=== PATIENT | male | born 1985 ===

== ENCOUNTER 2019-10-21 12:33 | Outpatient (CLI) | payer OTHER ==
[2019-10-21 16:22] VITALS: BP 121/74
--- NOTE | 2019-10-21 16:22 | SLEEP CARE CONSULTATION ---
Information from patient questionnaire entered by Bethanie Roberson. I have reviewed and concur with the information entered by Bethanie Roberson. This document represents the service I personally performed and the decisions made by me, Idalia Beckford ARNP. History of Present Illness Service Date and Time: 10/21/2019 1233 Reason for Visit: New patient Chief Complaint: reports: Unrefreshed sleep, Snoring, Excessive daytime sleepiness, Fatigue, Frequent awakenings at night (occasionally; but does have 1 month old at home). denies: Insomnia, Observed pauses in breathing Duration of Symptoms: 5 years plus; last year worse Usual bedtime: 10-11 pm Time it takes to fall asleep: 10-15 minutes Snores at night: Yes Observed to quit breathing while asleep: No Sleeps alone due to snoring: No (not yet) Number of times waking at night: 2-3 Reasons for waking at night: reports: Choking, Snoring, Gasping for air, Bathroom. denies: Pain Toss, Turn, or Twitch while sleeping: Yes Recalls having dreams: No Usually gets out of bed at: 6-7 am Feels refreshed in the morning: No Morning headache: Yes (sometimes; may stay all day sometimes) Sleepy or fatigued during the day: Yes Ever fallen asleep while driving: Yes (woken back up from [place]ble [place]) Takes day naps: No Dreams during day naps: No Prior sleep studies: No Additional HPI information: Patient has many years of unrefreshed sleep, loud snoring and daytime sleepiness. He states he usually puts off taking care of health issues but his insisted he talk to his doctor. He has some GI issues with blood in his stool that has been ongoing for 10 years but increasing in incidences over the last year. He ended up talking to his doctor about his GI symptoms and snoring/unrefreshed sleep who referred him to a GI specialist and the sleep center for further evaluation of his ongoing symptoms. He states he has a hard time staying awake during meetings at work and has dozed off while driving. He luckily was woken up by the noise of tires hitting the strips on the side of the road, no reported accidents. He is and has five kids, including a 1 month old son. He does have frequent awakening for many different reasons, i ncluding choking/gasping/snoring as well as restless legs movements. - Parasomnia Symptoms Ever been unable to move upon waking from sleep: No Walks in sleep: No Talks in sleep: Yes (all the time) Ever acted out dreams in sleep: Yes Ever felt weak in the knees when startled or emotional: No Bothered by creepy, crawly, restless sensations in legs: Yes Problems with memory or concentration: Yes (staying focused is difficult; especially at work on computer) Subjective Initial [place] Sleepiness Scale score: 9 (in 2019) Past Medical History Past Medical History: reports: Other (GI (unknown)- had blood in his stool for 10 years every 6 months/last for a month; referral to GI specialist). denies: Hypertension, Congestive Heart Failure, Diabetes, Stroke, Coronary Heart Disease, Arrythmia, Hypothyroidism, Anemia, Anxiety, Impotence, Depression, Mood disorder, GERD Social History The patient's occupation is a Active . Patient is and lives in [place]. Have you smoked in the past 12 months: No Cigarettes per day (20/pack): 30 Years of smokin Quit date: 2010 Smoking Pack Years: 12.0 Alcohol use: No Caffeine use: Yes Caffeine amount and frequency: 1-2 a day Family History Family history of sleep disordered breathing: Yes (father) Family Hx Sleep Apnea: Mother: Snoring (mother very loud snorer), Father: Snoring, Sleep apnea - Treated Allergies and Home Medications Drug allergies reviewed: Yes (NKDA) Home medication list reviewed: Yes (promethazine as needed and a probiotic) Review of Systems Weight loss over past 5 years: 15 Cardiovascular: denies: high blood pressure, palpitations, chest pain, irregular heart rate or pulse, leg or foot swelling, have to sleep sitting up Respiratory: denies: shortness of breath, chronic cough Gastrointestinal: reports: nausea, diarrhea, abdominal pain, other (blood in stool). denies: heartburn, difficulty swallowing Urinary: denies: impotence Neurological: reports: headaches. denies: seizure, head trauma, disorientation, speech dysfunction, gait or balance problems Psychiatric: denies: anxiety, depression, mood disorder, claustrophobia Ear/Nose/Throat: reports: wisdom teeth removed. denies: nasal congestion, sinus problems, nose bleeds, dry mouth/throat, hoarseness, injury to nose, tonsillectomy Endocrine: reports: sluggishness. denies: thyroid disease, too hot or cold, excessive thirst, increased appetite Musculoskeletal: denies: joint pain, back pain, joint swelling, muscle pain or cramping Immunologic: reports: allergies to food or environment (seasonal, takes OTC off brand zyrtec) Physical Exam Blood Pressure: 121/74 Cuff size: long Heart Rate: 66 O2 Saturation: 99 Height: 6 ft Weight: 230 lb 9.6 oz Body Mass Index: 31.2 BMI Classification: Obese Neck circumference: 17 (inches) HEENT: No craniofacial malformation Nostrils: patent to airflow Turbinates: normal Septum: midline Mouth and throat: normal Soft palate: normal Hard palate: normal Uvula: normal Uvula visualization: 100% Mallampati Class I Tongue: enlarged in size with teeth rendon on lateral edges Tonsils: 1+ Chin and jaw: normal size and position Neck: normal w/o lymphadenopathy or thyromegaly Heart: regular rate and rhythm Lungs: clear bilaterally Impression and Plan 1. Suspected Obstructive Sleep Apnea-Hypopnea Syndrome, as suggested by a history of loud and irregular snoring, gasping or choking in sleep, morning headache, frequent awakening during the night, unrefreshed sleep, cognitive impairment, and excessive daytime sleepiness. Narrow oropharynx and obesity are common predisposing factors for obstructive sleep apnea-hypopnea syndrome. Patient has a referral to GI specialist to discuss/evaluate his ongoing problem with blood in his stool. I recommend proceeding to polysomnography to confirm the diagnosis and to assess severity. I informed the patient of what the sleep studies involve and after some discussion, obtained agreement to proceed. The pathophysiology of obstructive sleep apnea-hypopnea syndrome was discussed with the patient and health risks of cardiovascular and cerebrovascular disease if not treated. AAS brochure for obstructive sleep apnea-hypopnea syndrome given and reviewed. 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 Patient agreed to plan. AAS drowsy driving brochure given. * Schedule polysomnography and return in 1-2 weeks after the study to discuss result and initiate therapy. * Avoid long distance driving or driving when feeling sleepy. * Attempt to lose weight. * Review instructions provided by trained office staff on how to prepare for the sleep study. * Return for follow-up after sleep study completed. Time Spent with Patient (minutes): 25
== END 2019-10-21 12:34 | disposition home or self-care (01) ==
LOC: SC 12:33
PROVIDERS: ATTEND Nurse Practitioner Family
DX: R06.83 Snoring (principal); R51 Headache; G47.8 Other sleep disorders; R41.89 Other symptoms and signs involving cognitive functions and awareness; G47.10 Hypersomnia, unspecified; E66.9 Obesity, unspecified; Z68.31 Body mass index [BMI] 31.0-31.9, adult; F17.210 Nicotine dependence, cigarettes, uncomplicated
CPT/HCPCS: 99204; 99212

== ENCOUNTER 2019-11-27 19:33 | Outpatient (CLI) | payer OTHER | END 2019-11-27 19:34 | disposition home or self-care (01) | LOC: SC 19:33 | PROVIDERS: ATTEND Internal Medicine Pulmonary Disease | DX: R06.83 Snoring (principal); G47.10 Hypersomnia, unspecified; G47.8 Other sleep disorders; G47.50 Parasomnia, unspecified; E66.3 Overweight; Z68.31 Body mass index [BMI] 31.0-31.9, adult | CPT/HCPCS: 95810 ==

== ENCOUNTER 2019-12-04 14:28 | Outpatient (CLI) | payer OTHER ==
--- NOTE | 2019-12-04 14:57 | SLEEP CARE CONSULTATION ---
Information from patient questionnaire entered by Grayson Barrera. I have reviewed and concur with the information entered by Grayson Barrera. This document represents the service I personally performed and the decisions made by , Idalia Beckford ARNP. History of Present Illness Service Date and Time: 12/04/20191427 Initial [place] Sleepiness Scale score: 9 (in 2019) Additional HPI information: DERRICK CHACON returns with spouse for follow up and results of the recently performed polysomnography. The patient was informed of the following findings: Normal sleep study without evidence of significant sleep disordered breathing. I explained the pathophysiology behind obstructive sleep apnea. Patient does not have sleep apnea and was advised how weight gain could increase the risk of developing sleep apnea in the future. I strongly encouraged the patient to lose weight. Patient has moderate to loud snoring. Snoring can be reduced by weight loss. Weight loss is best achieved with diet consult. Patient instructed to contact PCP for referral. Snoring can also be treated with an oral appliance from a dentist. Advised to check insurance coverage. In addition, an ENT evaluation can be do to see if other treatment is indicated. Patient counseled not drink alcohol less than 4 hours before bedtime as it can increase snoring and apnea. Patient was cautioned about risks of drowsy driving until sleepiness symptoms resolve. Sleep Study - Results Type of Sleep Study: Polysomnography Prior sleep studies: No Polysomnography/Home Sleep Study results: IMPRESSION: The quality of the study is good. The patient had normal sleep efficiency. The sleep architecture was normal as well. Respiratory monitoring showed no significant sleep disordered breathing (AHI = 0.9) or hypoxia (roverto oxygen saturation of 91%). The patient only slept supine during this study (supine AHI = 0.9; nonsupine = 0.00). Snore was moderate to loud in intensity. There was no significant periodic leg movement of sleep. Cardiac rhythm was normal sinus rhythm without significant arrhythmia. No abnormal behavior (parasomnia) observed during the night. Allergies and Home Medications Drug allergies reviewed: Yes (NKDA) Home medication list reviewed: Yes (added budesonide, mesalamine, promethazine) Review of Systems Review of systems same as previous: No (recently diagnosed with ulcerative colitis) Physical Exam Heart Rate: 75 O2 Saturation: 98 Height: 6 ft Weight: 213 lb Body Mass Index: 28.8 BMI Classification: Overweight Impression and Plan Snoring but no significant sleep disordered breathing. Patient advised that often weight loss will reduce snoring as well as apnea risk. An oral appliance can also be used for snoring. This would require a dental consultation. Patient cautioned not to use other online appliances as can cause bite issues. Patient is advised to check if insurance will cover. An ENT consult can also be helpful to determine if any other treatment is an option. Patient recently diagnosed with ulcerative colitis with long history of blood in his stool. He is not on medication and has not had any bleeding in the last 2 weeks. He states he had restless legs last night. This is common for him but not every night. He states he slept really well for the sleep study but still did not feel rested the next day. I advised him to follow up with his PCP for evaluation of iron store depletion or anemia as possible cause of his fatigue and intermittent restless leg symptoms. Low iron stores are commonly found in people with symptoms of restless legs and with his history of bleeding he may have a low store of ferritin. * Follow up with PCP for fatigue and restless legs symptoms * Attempt to lose weight * Avoid alcohol consumption near bedtime * The patient is cautioned about driving until sleepiness is completely resolved. * Return as needed with worsening of symptoms or change in symptoms. Visit Type: In Office Time Spent with Patient (minutes): 15 Provider Statement: I spent 100% of the Face to Face Visit with the patient with greater than 50% spent counseling the patient and coordination of care.
== END 2019-12-04 14:29 | disposition home or self-care (01) ==
LOC: SC 14:28
PROVIDERS: ATTEND Nurse Practitioner Family
DX: R06.83 Snoring (principal); E66.3 Overweight; Z68.28 Body mass index [BMI] 28.0-28.9, adult
CPT/HCPCS: 99212; 99213

== ENCOUNTER 2020-02-19 01:42 | Outpatient (CLI) | payer OTHER | END 2020-02-19 01:43 | disposition short-term general hospital (02) | LOC: EMS 01:42 | PROVIDERS: ATTEND Surgery | DX: R10.30 Lower abdominal pain, unspecified (principal); M25.552 Pain in left hip; M25.551 Pain in right hip | CPT/HCPCS: A0425; A0427 ==

== ENCOUNTER 2020-12-15 09:18 | Outpatient (CLI) | payer OTHER ==
--- NOTE | 2020-12-15 09:58 | SLEEP CARE CONSULTATION ---
Information from patient questionnaire entered by Bethanie Roberson. I have reviewed and concur with the information entered by Bethanie Roberson. This document represents the service I personally performed and the decisions made by , Idalia Beckford ARNP. History of Present Illness Service Date and Time: 12/15/2020 0918 Reason for follow up: annual (last seen 12/2019) Prior sleep studies: Yes Year and Where: 2019 - [facility] Type of Sleep Study: Polysomnography (negative) HPI additional information: DERRICK CHACON returns today for a follow-up. He was talking with PCP about his restless legs. He is having symptoms of restless legs 5-6 days a week. He is also tired all the time despite getting adequate time in bed/sleep. He was started on some muscle relaxers which do help reduce the RLS symptoms. He states the restless legs to not wake him up but it does make it hard for him to relax enough to go to sleep. He still has some nights that he will wake up for unknown reasons and a hard time falling back asleep. Subjective Initial [place] Sleepiness Scale score: 9 (in 2019) Allergies and Home Medications Home medication list reviewed: Yes Allergy and home medication list: Humira Methotrexate Fontanelle Robaxin Zyrtec Review of Systems Review of systems same as previous: No (Ulcerative colitis) Physical Exam Heart Rate: 73 O2 Saturation: 98 Height: 6 ft Weight: 242 lb (w/boots) Body Mass Index: 32.8 BMI Classification: Obese Impression and Plan 1. Suspected Obstructive Sleep Apnea-Hypopnea Syndrome, as suggested by a history of irregular snoring, observed cessation of breath while asleep, gasping or choking in sleep, frequent awakening during the night, unrefreshed sleep, and excessive daytime sleepiness. Patient had a previous sleep study but did not sleep non-supine during the study. Patient continues to have symptoms and has been diagnosed with restless leg syndrome. He experiences restless sensations in his legs 5 to 6 days of the week and is on Robaxin which does help reduce the restlessness. I think it would be advantageous to repeat a home study and have him sleep both supine and non-supine to get abril accurate measurement. I recommend proceeding to polysomnography to confirm the diagnosis and to assess severity. The pathophysiology of obstructive sleep apnea-hypopnea syndrome was discussed with the patient and health risks of cardiovascular and cerebrovascular disease if not treated. 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 Patient agreed to plan. * Schedule HST * Avoid long distance driving or driving when feeling sleepy. * Avoid alcohol, sedative and muscle relaxant around bedtime. * Attempt to lose weight. * Review instructions provided by trained office staff on how to prepare for the sleep study. * Return for follow-up after sleep study completed. Counseling Topics: Weight loss health impact Visit Type: In Office Time Spent with Patient (minutes): 22 Provider Statement: I spent 100% of the Face to Face Visit with the patient with greater than 50% spent counseling the patient and coordination of care.
== END 2020-12-15 09:19 | disposition home or self-care (01) ==
LOC: SC 09:18
PROVIDERS: ATTEND Nurse Practitioner Family
DX: R06.83 Snoring (principal); G47.10 Hypersomnia, unspecified; G47.8 Other sleep disorders; G25.81 Restless legs syndrome; E66.9 Obesity, unspecified; Z68.32 Body mass index [BMI] 32.0-32.9, adult
CPT/HCPCS: 99212; 99213

== ENCOUNTER 2021-01-19 08:20 | Outpatient (CLI) | payer OTHER | END 2021-01-19 08:21 | disposition home or self-care (01) | LOC: SC 08:20 | PROVIDERS: ATTEND Nurse Practitioner Family | DX: Z53.9 Procedure and treatment not carried out, unspecified reason (principal) ==

== ENCOUNTER 2021-04-06 19:33 | Outpatient (CLI) | payer OTHER | END 2021-04-06 19:34 | disposition home or self-care (01) | LOC: SC 19:33 | PROVIDERS: ATTEND Nurse Practitioner Family | DX: G47.33 Obstructive sleep apnea (adult) (pediatric) (principal) | CPT/HCPCS: 95810 ==

== ENCOUNTER 2021-04-14 09:26 | Outpatient (CLI) | payer OTHER ==
[2021-04-14 10:02] VITALS: BP 133/91
--- NOTE | 2021-04-14 10:02 | SLEEP CARE CONSULTATION ---
Information from patient questionnaire entered by Michelle Rouse MA. I have reviewed and concur with the information entered by Michelle Rouse MA. This document represents the service I personally performed and the decisions made by , Idalia Beckford ARNP. History of Present Illness Service Date and Time: 04/14/2021 0926 Initial [place] Sleepiness Scale score: 9 (in 2019) Current [place] Sleepiness Scale score: 3 (2021) Additional HPI information: DERRICK CHACON returns for follow up and results of the recently performed polysomnography. I explained the pathophysiology behind obstructive sleep apnea. We then spent quite a bit of time discussing different treatment options. For mild obstructive sleep apnea, surgery and oral appliance are alternatives to nasal CPAP therapy but in moderate or severe cases, nasal CPAP is the most effective and reliable treatment. Because apnea is primarily in supine position, then positional management therapy could be effective. Methods discussed such as positioning with pillows to prevent supine sleep. I reviewed the impact of weight changes on sleep apnea and strongly recommended losing weight. After some discussion, the patient opted to go with the nasal CPAP therapy. Nasal autoCPAP set at 4-15 cmH20 will be ordered with rationale explained. A manual titration study will be ordered if unable to find optimal pressure with office adjustments. I explained how CPAP machine works and what to expect when using the machine. Using CPAP every night in order to get used to it was emphasized. Patient advised to put CPAP mask on before getting into bed so as not to fall asleep without CPAP. To assist acclimation to CPAP use, it could also be used for a short time during day while reading or watching TV. The patient was instructed to call the CPAP supplier to discuss any mechanical problem that may occur. If the mask given is uncomfortable or is difficult to keep on through the night even with adjustment, contact the CPAP supplier as many will replace with another mask style if notified before 30 days. If snoring or perceives is not getting enough air or too much air from the machine, notify this office. AASM patient education PAP tips reviewed and given to ciera cope. Patient was cautioned about risks of drowsy driving until sleepiness symptoms resolve. Sleep Study - Results Type of Sleep Study: Polysomnography (negative) Prior sleep studies: Yes Year and Where: 2019 - [facility] Sleep Polysomnography/Home Sleep Study results: IMPRESSION: The quality of the study is fair due to loss of pressure transducer air flow signal. The patient had normal sleep efficiency. The sleep architecture was normal as well. Respiratory monitoring showed mild obstructive sleep apnea-hypopnea (AHI = 8.4) associated with oxyhemoglobin desaturation and mild hypoxia (roverto oxygen saturation of 82%). The respiratory events occurred mainly during supine sleep (supine AHI = 10.3; nonsupine = 5.21). Snore was light to moderate in intensity. There was no significant periodic leg movement of sleep. Cardiac rhythm was normal sinus rhythm without significant arrhythmia. No abnormal behavior (parasomnia) observed during the night. Allergies and Home Medications Known drug allergies: No Drug allergies reviewed: Yes Home medication list reviewed: Yes (no changes) Review of Systems Review of systems same as previous: Yes (no changes) Physical Exam Vital signs obtained and entered by: ELLA ANDREWS Blood Pressure: 133/91 (RIGHT, PULSE 77) Heart Rate: 82 O2 Saturation: 98 (WITH PAPER MASK) Height: 6 ft Weight: 235 lb (WITH CLOTHES AND BOOTS) Body Mass Index: 31.8 BMI Classification: Obese Impression and Plan 1. Obstructive Sleep Apnea-Hypopnea Syndrome, mild, with lowest oxygen saturation of 82%. Obviously this is the cause of the patients symptoms of unrefreshed sleep, and excessive daytime sleepiness. Positive pressure therapy could benefit his overall health and reduce cardiovascular and cerebrovascular adverse events. As mentioned above, the patient will be started on nasal autoCPAP therapy with pressure set at 4-15 cmH2O. A manual titration study will be completed if unable to find optimal treatment pressure with office adjustments. Compliance guidelines also reviewed. A copy of compliance guidelines will be given for reference at check out. Because the apnea is more severe supine, I instructed to avoid sleeping supine using pillow positioning until able to start CPAP use. Patient has concerns about parasomnia behaviors he experiences at night where he will sit up in bed, stand at bedside and even start making his bed while still asleep. He states he can go months without doing this but then have a month where he does and he does not sleep well those nights. I will look into this and discuss with medical technologist generalist about this. We did not see any of this behavior the night of the PSG. * Nasal auto CPAP therapy, pressure at 4-15 cm H2O. * Attempt to lose weight. * Avoid alcohol consumption near bedtime. * Avoid supine sleep until using CPAP. * The patient is again cautioned about driving until sleepiness completely resolves. * Return one month after CPAP obtained. I will assess response to therapy and compliance at that time. Counseling Topics: Weight loss health impact Visit Type: In Office Time Spent with Patient (minutes): 20 Provider Statement: I spent 100% of the Face to Face Visit with the patient with greater than 50% spent counseling the patient and coordination of care.
== END 2021-04-14 09:27 | disposition home or self-care (01) ==
LOC: SC 09:26
PROVIDERS: ATTEND Nurse Practitioner Family
DX: G47.33 Obstructive sleep apnea (adult) (pediatric) (principal); E66.9 Obesity, unspecified; Z68.31 Body mass index [BMI] 31.0-31.9, adult
CPT/HCPCS: 99212; 99213

== ENCOUNTER 2021-08-02 13:07 | Outpatient (CLI) | payer OTHER ==
[2021-08-02 14:39] VITALS: BP 128/76
--- NOTE | 2021-08-02 14:39 | SLEEP CARE CONSULTATION ---
Information from patient questionnaire entered by Michelle Apodaca MA. I have reviewed and concur with the information entered by Michelle Apodaca MA. This document represents the service I personally performed and the decisions made by , Idalia Beckford ARNP. History of Present Illness Service Date and Time: 08/02/2021 1307 Previous diagnosis: Mild, Obstructive Sleep Apnea-Hypopnea Syndrome AHI: 8.4 (in 2021) Reason for follow up: first compliance (SET UP DATE 06/08/21, MELANIE MCCURDY WILL FAX OVER THE COMPLIANCE TODAY, ) Equipment type: CPAP Equipment obtained from: Other ([employer]; got initial supplies) Mask style: Full face Backup mask available: No (will keep old mask when replaced) Last cushion change: 1 month [facility] sleep [facility]: Yes [facility] Type of Sleep Study: Polysomnography (negative) HPI additional information: DERRICK CHACON was diagnosed to have mild, AHI 8.4, obstructive sleep apnea- hypopnea syndrome and returned today for CPAP therapy first compliance follow- up. Sleep Study - Results Type of Sleep Study: Polysomnography (negative) Prior sleep studies: Yes [facility] CP[facility] Compliance Data - Data Reviewed with Patient Average duration of nightly device use: 2 hours Compliance rate %: 6 ( days used; >/= to 4 hours) Current pressure setting (cmH2O): 4-15 Humidity settin Average residual AHI: 0.6 Average large leak: 3.6 L/min Compliance data discussion: He states he was doing well with the mask until he got sick with a virus about 3 weeks ago. He was wearing the mask between 5-6 hours most nights. Subjective Missed days of use due to: reports: family emergency, illness Patient concerns: reports: condensation in mask/hose (resolved now), dry mouth, nose, throat (resolved with using full face mask). denies: aerophagia, mask discomfort, air blowing in eyes, mask leak noise, nasal congestion, epistaxis, other Observed to snore while using device: No On therapy, patient: reports: sleeping better, awakening more refreshed, being more awake and alert during the day, more rested overall, other (reduced headaches). denies: drowsiness while driving Initial [place] Sleepiness Scale score: 9 (in 2019) Current [place] Sleepiness Scale score: 2 (07/2021) Allergies and Home Medications Known drug allergies: No Drug allergies reviewed: Yes Home medication list reviewed: Yes (prednisone for ulcerative colitis, last 4 months) Review of Systems Review of systems same as previous: Yes Physical Exam Vital signs obtained and entered by: ELLA APODACA Blood Pressure: 128/76 (right, resp 16, pulse 93) Heart Rate: 68 O2 Saturation: 96 Height: 6 ft Weight: 230 lb (with clothes) Body Mass Index: 31.1 BMI Classification: Obese Impression and Plan 1. Obstructive Sleep Apnea-Hypopnea Syndrome, mild, with poor treatment compliance and excellent apnea control. On CPAP therapy, the patient has better sleep quality and is more rested overall. I was unable to get a full compliance therapy report from his DME to see what pressures he is using on average. He is doing well on current setting of 4-15 cmH2O and no changes will be made until I see the full report. His compliance is down. About 3 weeks ago he got very ill, he thinks it was a virus and due to coughing could not tolerate wearing the mask until he got better. He has started using it 5-6 hours a night over the last 4-5 days. He has noticed that he has been having less headaches when he uses the CPAP. Patient's apnea severity and rationale for treatment to reduce apnea, improve sleep quality and reduce cardiovascular and cerebrovascular events was reviewed. Patient was advised to try to lose weight to maintain a healthy weight and reduce apneas. 2. Parasomnia. Patient was advised patient that I spoke with Dr. Zaldivar about the parasomnias he described at our last visit and that Dr. Zaldivar advised that since these episodes of parasomnias were not often that a daily medication was not an ideal solution. He said as long as there were no risky behaviors such as walking out of the house, cooking or aggressive behavior that no treatment was really needed. Dr. Zaldivar also stated that taking a 4 mg tablet of melatonin nightly has been shown to reduce episodes of parasomnias. He could take melatonin 4 mg daily to try to reduce parasomnias as a preventative. He voiced understanding. * Continue auto CPAP pressure at 4-15 cmH2O * Patient may take OTC melatonin 4 mg nightly to reduce parasomnias * Notify me if snoring with mask or feeling that the pressure is too much or too little * Attempt to lose weight * Call this office if any problems using CPAP * Return for follow up in 1-2 months, or sooner if concerns arise Counseling Topics: Spare mask, Weight loss health impact Visit Type: In Office Time Spent with Patient (minutes): 22 Provider Statement: I spent 100% of the Face to Face Visit with the patient with greater than 50% spent counseling the patient and coordination of care.
== END 2021-08-02 13:08 | disposition home or self-care (01) ==
LOC: SC 13:07
PROVIDERS: ATTEND Nurse Practitioner Family
DX: G47.33 Obstructive sleep apnea (adult) (pediatric) (principal); G47.50 Parasomnia, unspecified; E66.9 Obesity, unspecified; Z68.31 Body mass index [BMI] 31.0-31.9, adult
CPT/HCPCS: 99212; 99213

== ENCOUNTER 2021-09-14 10:21 | Outpatient (CLI) | payer OTHER ==
[2021-09-14 11:09] VITALS: BP 136/96
--- NOTE | 2021-09-14 11:09 | SLEEP CARE CONSULTATION ---
Information from patient questionnaire entered by Michelle Rouse MA. I have reviewed and concur with the information entered by Michelle Rouse MA. This document represents the service I personally performed and the decisions made by , Idalia Beckford ARNP. History of Present Illness Service Date and Time: 09/14/2021 1021 Previous diagnosis: Mild, Obstructive Sleep Apnea-Hypopnea Syndrome AHI: 8.4 (in 2021) Reason for follow up: other (6 WEEK F/U, IBREEZE, WE CALLED OX FOR COMPLIANCE 09/13/21, ) Accompanied by: Spouse Equipment type: CPAP (IBreeze) Equipment obtained from: Other ([employer]; getting supplies as needed) Mask style: Full face Backup mask available: Yes (other masks) [facility]: Yes [facility] Type of Sleep Study: Polysomnography (negative) HPI additional information: DERRICK CHACON was diagnosed to have mild, AHI 8.4, obstructive sleep apnea- hypopnea syndrome and returned with spouse and kids today for CPAP therapy 6 week follow-up. Sleep Study - Results Type of Sleep Study: Polysomnography (negative) Prior sleep studies: Yes [facility] CPAP Compliance Data - Data Reviewed with Patient Average duration of nightly device use: 1.5 hrs Compliance rate %: 0 (24/30 days used; 30 day compliance) Current pressure setting (cmH2O): 4-15 (P95 avg 5.3) Average residual AHI: 1.2 Average large leak: 15.6 L/min Subjective Patient concerns: reports: other (sleep walking increased over last month). denies: aerophagia, mask discomfort, air blowing in eyes, mask leak noise, condensation in mask/hose, nasal congestion, dry mouth, nose, throat, epistaxis Observed to snore while using device: Yes Current pressure setting perceived as: too low (TAKE IT OFF DURING SLEEP, SNORING WHILE USE,) On therapy, patient: reports: sleeping better, awakening more refreshed, being more awake and alert during the day, more rested overall. denies: drowsiness while driving Initial [place] Sleepiness Scale score: 9 (in 2019) Current [place] Sleepiness Scale score: 7 (09/14/2021) Allergies and Home Medications Home medication list reviewed: Yes (Stelara for ulcerative colitis) Review of Systems Review of systems same as previous: Yes (no changes) Physical Exam Vital signs obtained and entered by: ELLA ANDREWS Blood Pressure: 136/96 (RESP 18, PULSE 69, RIGHT) Cuff size: wrist Heart Rate: 68 O2 Saturation: 98 (PAPER MASK) Height: 6 ft Weight: 230 lb (PT CLOTHES) Body Mass Index: 31.1 BMI Classification: Obese Impression and Plan 1. Obstructive Sleep Apnea-Hypopnea Syndrome, mild, with poor treatment compliance and good apnea control. On CPAP therapy, the patient has better sleep quality and is more rested overall. The patients pressure will be changed to autoCPAP 6-10 cmH20 for elevation of residual AHI. Patient advised to contact me if pressure change is uncomfortable so that it can be adjusted. Goals for apnea control discussed. He has trouble with feeling like he can't get enough air at night's onset. I will increase his ramp starting pressure to 5 cmH2O (his starting ramp pressure was at 3.5). His states even when he has the mask on she can still hear him snoring. He also will take the mask off after about 1.5 hours while asleep. His will try to get him to put mask back on but he is not cooperative when half-awake. I advised her to continue to remind him when she finds he has taken his mask off. He states that he will try harder to keep mask on and replace when he has taken it off. Patient's apnea severity and rationale for treatment to reduce apnea, improve sleep quality and reduce cardiovascular and cerebrovascular events was reviewed. * Change auto CPAP pressure to 6-10 cmH2O * Increase ramp starting pressure to 5 cmH2O * Notify me if snoring with mask or feeling that the pressure is too much or too little * Attempt to lose weight * Call this office if any problems using CPAP * Return for follow up in 1-2 months, or sooner if concerns arise Counseling Topics: Spare mask, Weight loss health impact Visit Type: In Office Time Spent with Patient (minutes): 27 Provider Statement: I spent 100% of the Face to Face Visit with the patient with greater than 50% spent counseling the patient and coordination of care.
== END 2021-09-14 10:22 | disposition home or self-care (01) ==
LOC: SC 10:21
PROVIDERS: ATTEND Nurse Practitioner Family
DX: G47.33 Obstructive sleep apnea (adult) (pediatric) (principal); E66.9 Obesity, unspecified; Z68.31 Body mass index [BMI] 31.0-31.9, adult
CPT/HCPCS: 99212; 99213

== ENCOUNTER 2022-10-26 20:51 | Emergency (ER) | payer OTHER ==
[2022-10-26 20:58] VITALS: BP 139/90
--- NOTE | 2022-10-26 21:11 | ED Physician Documentation ---
PD HPI LOWER EXT INJURY - Stated complaint Stated Complaint: R ANKLE INJ - Chief complaint Chief Complaint: Trauma Ext - History obtained from History obtained from: Patient (Without specific injury he developed medial foot pain over the last couple of days. It is mild at rest but severe if he walks. This is never happened before.) PD PAST MEDICAL HISTORY - Allergies Allergies/Adverse Reactions: Allergies Allergy/AdvReac Type Severity Reaction Status Date / Time No Known Drug Allergies Allergy Verified 10/26/22 20:56 PD ED PE NORMAL - Vitals Vital signs reviewed: Yes - General General: Alert and oriented X 3, No acute distress - Extremities Extremities: Other (The right ankle is nontender and he is not tender over the talar dome. He does have significant tender medially to the proximal forefoot kind of over the navicular/medial cuneiform. There is no overlying redness. He also has severe pain with forced external rotation of the ankle/foot.) - Neuro Neuro: Alert and oriented X 3, Normal speech Results - Vitals Vitals: Vital Signs - 24 hr 10/26/22 20:55 Temperature 37.2 C Heart Rate 80 Respiratory 18 Rate Blood Pressure 139/90 H O2 Saturation 99 Oxygen O2 Source Room air - Rads (name of study) 3v xr R foot - neg Relevant Findings:: Final report received, EMP independent interpretation of test Departure - Departure Disposition: 01 Home, Self Care Clinical Impression: Tendinitis of right foot Condition: Good Record reviewed to determine appropriate education?: Yes Instructions: Tendinitis Foot Follow-Up: Jacky Barreto, DPM [Physician No Access] - Comments: Looking like you have a tendinitis of the tibialis anterior tendon. The most important thing is rest and limitation of walking as well as elevation and ice. Tylenol for minor pain. If not improved over the short timeframe reasonable to follow-up with a director geothermal operations. Return for new or worsening symptoms. Forms: PCP List Discharge Date/Time: 10/26/22 22:03
[2022-10-26] MEDS ORDERED: HYDROcod/ACET 5/325 Prepack 4 PO STA (21:40)
--- NOTE | 2022-10-26 22:03 | XRAY Report ---
PROCEDURE: Foot 3 View RT INDICATIONS: foot m=pain TECHNIQUE: 3 views of the foot were acquired. COMPARISON: None. FINDINGS: Bones: No fractures or dislocations. No suspicious bony lesions. Incidental note is made of an ent hesophyte at the Achilles insertion. Soft tissues: No suspicious soft tissue calcifications or masses. IMPRESSION: No acute bony abnormality. Reviewed by: Michael Fonseca MD on 10/26/2022 9:02 PM AKJENNIFER Approved by: Michael Fonseca MD on 10/26/2022 9:02 PM AKJENNIFER Station ID: [id number]
== END 2022-10-26 22:03 | disposition home or self-care (01) ==
LOC: EDUNIT# → ED 20:51
DX: M77.8 Other enthesopathies, not elsewhere classified (principal)
CPT/HCPCS: 99283

== ENCOUNTER 2022-10-26 21:17 | Outpatient (CLI) | payer OTHER | END 2022-10-26 23:59 | disposition critical access hospital (66) | LOC: EMS 21:17 | DX: M25.571 Pain in right ankle and joints of right foot (principal) | CPT/HCPCS: A0425; A0429 ==

== ENCOUNTER 2023-03-23 20:15 | Emergency (ER) | payer OTHER ==
--- NOTE | 2023-03-23 22:18 | ED Physician Documentation ---
History of Present Illness - Stated complaint Stated Complaint: FEVER/COUGH - Chief complaint Chief Complaint: General - Additonal information Additional information: HPI from patient. Patient's symptoms started yesterday, comprised of fever Tmax 103-104 range, generalized body aches, generalized headache, poor appetite. Patient says he had COVID "a few weeks ago" (per patient); he says he did not finish the Paxlovid due to gastrointestinal side effects. However, he says he feels that his symptoms that he had associate with COVID had completely resolved. Patient notes mild but nonproductive cough since yesterday, as well. Denies abdominal pain, denies dysuria or urinary frequency, denies sore throat. Review of Systems Constitutional: reports: Fever, Chills, Myalgias, Fatigue, Sweats Cardiac: denies: Chest pain / pressure Respiratory: reports: Dyspnea, Cough GI: denies: Abdominal Pain, Nausea, Vomiting : denies: Dysuria, Frequency PD PAST MEDICAL HISTORY - Past Medical History Past Medical History: Yes GI: Cholelithiasis - Past Surgical History Past Surgical History: No - Present Medications Home Medications: Ambulatory Orders Medication Instructions Recorded Confirmed Oseltamivir [Tamiflu] 75 mg PO BID #9 cap 03/23/23 Promethazine [Phenergan] 25 mg PO Q6H PRN #10 tab 03/23/23 - Allergies Allergies/Adverse Reactions: Allergies Allergy/AdvReac Type Severity Reaction Status Date / Time No Known Drug Allergies Allergy Verified 03/23/23 20:20 - Social History Does the pt smoke?: No Smoking Status: Never smoker Does the pt drink ETOH?: No Does the pt have substance abuse?: No - Immunizations Immunizations are current?: Yes PD ED PE NORMAL - Vitals Vital signs reviewed: Yes - General General: Alert and oriented X 3, No acute distress, Well developed/nourished - Neck Neck: Supple, no meningeal sign - Cardiac Cardiac: RRR, No murmur - Respiratory Respiratory: No respiratory distress, Other (course breath sounds bilaterally but good air movement, no wheezing, no focal adventitious breath sounds) - Abdomen Abdomen: Soft, Non tender Results - Vitals Vitals: Oxygen O2 Source Room air - Labs Labs: Laboratory Tests 03/23/23 21:24 Nasal Adenovirus (PCR) NOT DETECTED Nasal B. parapertussis DNA (PCR) NOT DETECTED Nasal Coronavir 229E PCR NOT DETECTED Nasal Coronavir HKU1 PCR NOT DETECTED Nasal Coronavir NL63 PCR NOT DETECTED Nasal Coronavir OC43 PCR NOT DETECTED Nasal Enterovir/Rhinovir PCR NOT DETECTED Nasal Influ A H1 2009 PCR DETECTED A Nasal Influenza B PCR NOT DETECTED Nasal Influenza A PCR Not Reportable Nasal Parainfluen 1 PCR NOT DETECTED Nasal Parainfluen 2 PCR NOT DETECTED Nasal Parainfluen 3 PCR NOT DETECTED Nasal Parainfluen 4 PCR NOT DETECTED Nasal RSV (PCR) NOT DETECTED Nasal B.pertussis DNA PCR NOT DETECTED Nasal C.pneumoniae (PCR) NOT DETECTED Jeffrey Human Metapneumo PCR NOT DETECTED Nasal M.pneumoniae (PCR) NOT DETECTED Nasal SARS-CoV-2 (PCR) NOT DETECTED PD Medical Decision Making - ED course Complexity details: reviewed results, re-evaluated patient, considered differential, d/w patient ED course: Respiratory PCR is positive for influenza A H1 2009. This would account for his signs/symptoms. Result d/w patient, return precautions reviewed. He is given phenergan 25mg PO for nausea prior to oseltamivir, with rx for 5-day course of oseltamivir e-prescribed to his pharmacy of choice. Departure - Departure Disposition: Home, Self Care Clinical Impression: Influenza A virus subtype H1 2009 pandemic strain present Condition: Good Instructions: ED Flu, Medication: Tamiflu (Oseltamivir) Prescriptions: Promethazine [Phenergan] 25 mg PO Q6H PRN #10 tab PRN Reason: Nausea / Vomiting Oseltamivir [Tamiflu] 75 mg PO BID #9 cap Comments: You tested positive for influenza a. This would account for your symptoms and signs. You are given the first dose of an anti-influenza medication (oseltamivir/Tamiflu) in the emergency department, and have electronically submitted a prescription for a 5-day course of this medication to the [facility] pharmacy in [place] as well as a prescription for the anti-nausea medication Phenergan. Forms: PCP List Discharge Date/Time: 03/23/23 23:56
[2023-03-23 23:03] LABS: CORONAVIRUS 229E-RESP PCR NOT DETECTED; CORONAVIRUS HKU1-RESP PCR NOT DETECTED; CORONAVIRUS NL63-RESP PCR NOT DETECTED; CORONAVIRUS OC43-RESP PCR NOT DETECTED; HUMAN METAPNEUMOVIRUS NOT DETECTED; RHINOVIRUS/ENTEROVIRUS NOT DETECTED; SARS-CoV-2 -RESP PCR PANEL NOT DETECTED
[2023-03-23 23:04] LABS: B. PARAPERTUSSIS- RESP PCR PAN NOT DETECTED; B. PERTUSSIS- RESP PCR PANEL NOT DETECTED; C. PNEUMONIAE- RESP PCR PANEL NOT DETECTED; INFLUENZA A H1 2009- RESP PCR DETECTED; INFLUENZA B - RESP PCR PANEL NOT DETECTED; M. PNEUMONIAE- RESP PCR PANEL NOT DETECTED; PARAINFLUENZA VIRUS 1 NOT DETECTED; PARAINFLUENZA VIRUS 2 NOT DETECTED; PARAINFLUENZA VIRUS 3 NOT DETECTED; PARAINFLUENZA VIRUS 4 NOT DETECTED; RSV- RESP PCR PANEL NOT DETECTED
[2023-03-23] MEDS ORDERED: ACETAMINOPHEN 325 MG TABLET PO STA (23:33)
[2023-03-23] MEDS ORDERED: OSELTAMIVIR 75 MG CAPSULE PO STA (23:33)
[2023-03-23] MEDS ORDERED: PROMETHAZINE 25 MG TABLET PO STA (23:33)
[2023-03-24 00:04] VITALS: BP 137/76; O2SAT 98
== END 2023-03-23 23:56 | disposition home or self-care (01) ==
LOC: ED 20:15
DX: J10.1 Influenza due to other identified influenza virus with other respiratory manifestations (principal); Z11.52 Encounter for screening for COVID-19
CPT/HCPCS: 87633; 99283; A9270; Q0169